=== PATIENT | female | born 1990 | race Caucasian/White ===

== ENCOUNTER 2018-01-13 19:27 | Emergency (ER) | payer OTHER ==
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
[2018-01-13 21:24] VITALS: BP 115/62
== END 2018-01-13 21:24 | disposition home or self-care (01) ==
LOC: ER 19:27
DX: S46.811A Strain of other muscles, fascia and tendons at shoulder and upper arm level, right arm, initial encounter (principal); M54.2 Cervicalgia; R11.0 Nausea; M25.511 Pain in right shoulder; V87.7XXA Person injured in collision between other specified motor vehicles (traffic), initial encounter
CPT/HCPCS: 99283

== ENCOUNTER 2018-12-10 21:20 | Emergency (ER) | payer BC, OTHER ==
[2018-12-10 21:40] VITALS: BP 115/75
[2018-12-10 22:40] LABS: APPEARANCE,URINE CLOUDY; BILIRUBIN,URINE NEGATIVE (NEGATIVE); CALCIUM OXALATE CRYSTALS,URINE MODERATE /HPF; COLOR,URINE YELLOW; GLUCOSE, URINE NEGATIVE (NEGATIVE); KETONES,URINE NEGATIVE (NEGATIVE); LEUKOCYTE ESTERASE,URINE SMALL (NEGATIVE); NITRITE,URINE NEGATIVE (NEGATIVE); PROTEIN,URINE 100 mg/dL (NEGATIVE); URINE SPECIFIC GRAVITY 1.032; UROBILINOGEN,URINE NEGATIVE mg/dL (<2.0)
[2018-12-10] MEDS ORDERED: ONDANSETRON 4 MG TAB.RAPDIS PO ONE (23:38)
[2018-12-10] MEDS ORDERED: KETOROLAC TROMETHAMINE 60 MG/2 ML SDV IM ONE (23:38)
--- NOTE | 2018-12-10 23:38 | ER Document Report ---
ED Medical Screen (RME) - General Chief Complaint: Flank Pain Stated Complaint: BACK PAIN Time Seen by Provider: 12/10/18 23:28 Mode of Arrival: Ambulatory Information source: Patient Notes: Patient is a 28-year-old female comes emergency room complaining of left flank pain with radiation around to her lower abdominal area. Patient states it woke her up out of sleep around 6 PM tonight she took some ibuprofen and then at 8 PM the pain got more pronounced that she took some Goody's powders and then she could not take it any longer came here. She states that this is the pain that seems to make her want to walk and move because she cannot find a position of comfort. She did make sure nauseated but she has not vomited. Stated it started in the left flank and has rolled around to her front side and primarily around her suprapubic area. She denies any other medical history with exception of taking some Prozac for depression. Her last menstrual period is now and the arm surgery she has had in her belly have been 2 C-sections. Patient denies any history of kidney stones in the past. TRAVEL OUTSIDE OF THE [place] 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 Allergies/Adverse Reactions: No Known Allergies Allergy (Unverified 01/13/18 19:34) Past Medical History - General Information source: Patient - Social History Cigarette use (# per day): No Chew tobacco use (# tins/day): No Frequency of alcohol use: None Drug Abuse: None Family history: Reviewed & Not Pertinent Renal/ Medical History: Denies: Hx Peritoneal Dialysis Review of Systems - Review of Systems Constitutional: No symptoms reported EENT: No symptoms reported Cardiovascular: No symptoms reported Respiratory: No symptoms reported Gastrointestinal: See HPI, Abdominal pain, Nausea Genitourinary: See HPI, Dysuria, Urgency Female Genitourinary: No symptoms reported Musculoskeletal: Back pain Skin: No symptoms reported Hematologic/Lymphatic: No symptoms reported Neurological/Psychological: No symptoms reported -: Yes All other systems reviewed and negative Physical Exam - Vital signs Vitals: Temp Pulse Resp BP Pulse Ox 98.1 F 80 16 115/75 98 12/10/18 21:40 12/10/18 21:40 12/10/18 21:40 12/10/18 21:40 12/10/18 21:40 Interpretation: Normal - Notes Notes: PHYSICAL EXAMINATION: GENERAL: Patient is well-nourished well-developed 28-year-old female who is in moderate amount of pain and discomfort on physical exam tonight. However she is not in any distress at this time.. HEAD: Atraumatic, normocephalic. LUNGS: Breath sounds clear to auscultation bilaterally and equal. No wheezes rales or rhonchi. HEART: Regular rate and rhythm without murmurs ABDOMEN: Examination patient's abdomen shows she has bowel sounds in all 4 quads. She is tender in the left upper and left lower quadrant areas but primarily more tender in the suprapubic area. She also displays very sensitive left-sided flank pain to percussion. Female : deferred Musculoskeletal: Patient displays left-sided flank pain to percussion. NEUROLOGICAL: Normal speech, normal gait. Normal sensory, motor exams PSYCH: Normal mood, normal affect. SKIN: Warm, Dry, normal turgor, no rashes or lesions noted. Course - Re-evaluation Re-evalutation: 12/10/18 23:37 Patient is started. This day as well. She does display flank pain we will go ahead and do a CT of her abdomen and pelvis without contrast after we receive her other labs back. - Vital Signs Vital signs: Temp Pulse Resp BP Pulse Ox 98.1 F 80 16 115/75 98 12/10/18 21:40 12/10/18 21:40 12/10/18 21:40 12/10/18 21:40 12/10/18 21:40 - Laboratory Laboratory results interpreted by me: 12/10/18 22:11 Urine Protein 100 H Urine Blood LARGE H Ur Leukocyte Esterase SMALL H
[2018-12-11 00:28] LABS: ABSOLUTE BASOPHILS # (AUTO) 0.1 10^3/uL (0.0-0.2); ABSOLUTE EOSINOPHILS # (AUTO) 0.1 10^3/uL (0.0-0.6); ABSOLUTE LYMPHOCYTES (AUTO) 1.5 10^3/uL (0.5-4.7); ABSOLUTE MONOCYTES (AUTO) 0.9 10^3/uL (0.1-1.4); ABSOLUTE NEUT (AUTO) 11.3 10^3/uL (1.7-8.2); BASOPHILS % (AUTO) 0.7 % (0-2); EOSINOPHILS % (AUTO) 0.7 % (0-6); HEMATOCRIT 36.4 % (36.0-47.0); HEMOGLOBIN 12.3 g/dL (12.0-15.5); MEAN CORPUSCULAR HEMOGLOBIN 29.9 pg (27.0-33.4); MEAN CORPUSCULAR HGB CONC 33.7 g/dL (32.0-36.0); MEAN CORPUSCULAR VOLUME 89 fl (80-97); MONOCYTES % (AUTO) 6.8 % (3-13); PLATELET COUNT 334 10^3/uL (150-450); RED BLOOD COUNT 4.11 10^6/uL (3.72-5.28); RED CELL DISTRIBUTION WIDTH 12.8 % (11.5-14.0); SEGMENTED NEUTROPHILS % (AUTO) 80.8 % (42-78); TOTAL CELLS COUNTED % (AUTO) 100 %
[2018-12-11 00:49] LABS: ALANINE AMINOTRANSFERASE 25 U/L (9-52); ALBUMIN 4.1 g/dL (3.5-5.0); ALKALINE PHOSPHATASE 74 U/L (38-126); ANION GAP 12 (5-19); ASPARTATE AMINO TRANSFERASE 18 U/L (14-36); BILIRUBIN,DIRECT 0.2 mg/dL (0.0-0.4); BILIRUBIN,TOTAL 0.4 mg/dL (0.2-1.3); BLOOD UREA NITROGEN 11 mg/dL (7-20); CALCIUM 9.8 mg/dL (8.4-10.2); CARBON DIOXIDE 23 mmol/L (22-30); CHLORIDE 107 mmol/L (98-107); GLUCOSE 167 mg/dL (75-110); POTASSIUM 4.2 mmol/L (3.6-5.0)
--- NOTE | 2018-12-11 00:50 | RADIOLOGY REPORT (SQ) ---
EXAM DESCRIPTION: CT ABDOMEN PELVIS WITHOUT IV CONTRAST COMPLETED DATE/TME: 12/10/2018 23:39 CLINICAL HISTORY: 28 years, Female, Left flank pain rule out stone COMPARISON: None. TECHNIQUE: CT of the abdomen and pelvis was performed without intravenous or oral contrast. Multiplanar reformatted images were provided. This exam was performed according to our departmental dose optimization program which includes use of automated exposure control, adjustment of the mA and/or kV according to patient size and/or use of iterative reconstruction technique. Images stored on PACS. All CT scanners at this facility use dose modulation, iterative reconstruction, and/or weight based dosing when appropriate to reduce radiation dose to as low as reasonably achievable (ALARA). [facility]: Dose Right [facility]: CareDose [facility]: Dose Right [facility]: Teradose 4D [facility]: Roomlr LIMITATIONS: None. FINDINGS: Evaluation of solid organ pathology is limited secondary to lack of intravenous contrast. Within these limitations, the following observations are made. Chest: Evaluation through the lung bases reveals no focal opacity, pleural effusion or pneumothorax. Heart size is within normal limits. No pericardial effusion. Abdomen and pelvis: The LEFT kidney reveals mild to moderate hydronephrosis and hydroureter to the level of the bladder where there is a dependent left-sided calcification compatible with calculus measuring 2 mm. At least one remaining focus of calcification remains within the LEFT renal pelvis measuring 2 mm. Multiple punctate foci of calcification within the RIGHT renal pelvis. The liver, gallbladder, pancreas, spleen, RIGHT kidney and bilateral adrenal glands are within normal limits. The vessels are normal in caliber. No abdominopelvic lymph nodes are noted to be pathologically enlarged by CT measurement criteria. The bowel is within normal limits without abnormal bowel wall thickness or bowel dilation. No free air. No free abdominopelvic fluid collections. The appendix is within normal limits. Intrauterine device present within the central uterine fundus. The osseous structures are within normal limits. IMPRESSION: 1. Mild to moderate hydronephrosis of the LEFT kidney secondary to 2 mm calculus within the dependent LEFT bladder. 2. Perinephric stranding for which superimposed infectious process cannot be excluded. 3. Multiple punctate foci of calcification within the RIGHT renal pelvis compatible with nonobstructing calculi. TECHNICAL DOCUMENTATION: Quality ID # [id number]: Final reports with documentation of one or more dose reduction techniques (e.g., Automated exposure control, adjustment of the mA and/or kV according to patient size, use of iterative reconstruction technique) copyright 2010 [email or web address]- All Rights Reserved
[2018-12-11] MEDS ORDERED: CEPHALEXIN 500 MG CAPSULE PO ONE (01:52)
[2018-12-11] MEDS ORDERED: ACETAMINOPHEN 325 MG TABLET PO ONE (01:53)
--- NOTE | 2018-12-11 01:58 | ER Document Report ---
ED General - General Chief Complaint: Flank Pain Stated Complaint: BACK PAIN Time Seen by Provider: 12/10/18 23:28 Mode of Arrival: Ambulatory Notes: Patient is a 28-year-old female comes emergency room complaining of left flank pain with radiation around to her lower abdominal area. Patient states it woke her up out of sleep around 6 PM tonight she took some ibuprofen and then at 8 PM the pain got more pronounced that she took some Goody's powders and then she could not take it any longer came here. She states that this is the pain that seems to make her want to walk and move because she cannot find a position of comfort. She did make sure nauseated but she has not vomited. Stated it started in the left flank and has rolled around to her front side and primarily around her suprapubic area. She denies any other medical history with exception of taking some Prozac for depression. Her last menstrual period is now and the arm surgery she has had in her belly have been 2 C-sections. Patient denies any history of kidney stones in the past. T - HPI Onset: This evening Onset/Duration: Sudden, Persistent, Worse Quality of pain: Achy, Sharp, Stabbing, Throbbing Severity: Severe Associated Symptoms: Abdominal pain, Dysuria, Nausea Exacerbated by: Movement Relieved by: Denies Similar symptoms previously: No Recently seen / treated by doctor: No TRAVEL OUTSIDE OF THE [place] IN LAST 30 DAYS: No - Related Data Allergies/Adverse Reactions: No Known Allergies Allergy (Unverified 01/13/18 19:34) Past Medical History - General Information source: Patient - Social History Smoking Status: Never Smoker Cigarette use (# per day): No Chew tobacco use (# tins/day): No Frequency of alcohol use: None Drug Abuse: None Lives with: Spouse/Significant other Family History: Reviewed & Not Pertinent Patient has suicidal ideation: No Patient has homicidal ideation: No Renal/ Medical History: Denies: Hx Peritoneal Dialysis Past Surgical History: Reports: Hx Section - 2, Hx Tonsillectomy Review of Systems - Review of Systems Notes: Constitutional: Negative for fever. HENT: Negative for sore throat. Eyes: Negative for visual changes. Cardiovascular: Negative for chest pain. Respiratory: Negative for shortness of breath. Gastrointestinal: Positive for left flank and left lower abdominal pain. Positive for nausea and vomiting Genitourinary: Positive for dysuria. Musculoskeletal: Negative for back pain. Skin: Negative for rash. Neurological: Negative for headaches, weakness or numbness. 10 point ROS negative except as marked above and in HPI. Physical Exam - Vital signs Vitals: Temp Pulse Resp BP Pulse Ox 98.1 F 80 16 115/75 98 12/10/18 21:40 12/10/18 21:40 12/10/18 21:40 12/10/18 21:40 12/10/18 21:40 Interpretation: Normal Notes: PHYSICAL EXAMINATION: GENERAL: Well-appearing, well-nourished and in no acute distress. HEAD: Atraumatic, normocephalic. EYES: Pupils equal round and reactive to light, extraocular movements intact, sclera anicteric, conjunctiva are normal. ENT: nares patent, oropharynx clear without exudates. Moist mucous membranes. NECK: Normal range of motion, supple without lymphadenopathy LUNGS: Breath sounds clear to auscultation bilaterally and equal. No wheezes r ales or rhonchi. HEART: Regular rate and rhythm without murmurs ABDOMEN: Soft, mild left CVA tenderness, no other localized area of abdominal tenderness, normoactive bowel sounds. No guarding, no rebound. No masses appreciated. EXTREMITIES: Normal range of motion, no pitting or edema. No cyanosis. NEUROLOGICAL: No focal neurological deficits. Moves all extremities spontaneously and on command. PSYCH: Normal mood, normal affect. SKIN: Warm, Dry, normal turgor, no rashes or lesions noted. Course - Re-evaluation Re-evalutation: 12/11/18 01:54 Presents with findings consistent with acute nephrolithiasis. Urinalysis does show hematuria as well as some pyuria. CT scan of the abdomen pelvis obtained in triage does demonstrate a 2 mm stone that is passed into the bladder as well as perinephric straining on the left kidney. Laboratory otherwise unremarkable. Pain was able to be controlled here in the emergency department. Patient is tolerating oral intake. Clinical history is not consistent with an acute abdomi nal aneurysm or dissection, [place], or pulmonary embolus. Patient has been started on cephalexin given urinalysis findings that do contain pyuria as well as perinephric stranding on CT scan. Vitals have remained within normal limits. At this time will discharge with return precautions and follow-up r ecommendations. Verbal discharge instructions given a the bedside and opportunity for questions given. Medication warnings reviewed. Patient is in agreement with this plan and has verbalized understanding of return precautions and the need for primary care follow-up in the next 24-72 hours. - Vital Signs Vital signs: Temp Pulse Resp BP Pulse Ox 98.1 F 80 16 115/75 98 12/10/18 21:40 12/10/18 21:40 12/10/18 21:40 12/10/18 21:40 12/10/18 21:40 - Laboratory Result Diagrams: 12/10/18 23:55 12/10/18 23:55 Laboratory results interpreted by me: 12/10/18 12/10/18 12/10/18 22:11 23:55 23:55 WBC 14.0 H Seg Neutrophils % 80.8 H Lymphocytes % 11.0 L Absolute Neutrophils 11.3 H Glucose 167 H Urine Protein 100 H Urine Blood LARGE H Ur Leukocyte Esterase SMALL H - Diagnostic Test Radiology reviewed: Reports reviewed Discharge - Discharge Clinical Impression: Left flank pain, Nephrolithiasis Nausea and vomiting Qualifiers: Vomiting type: unspecified Vomiting Intractability: non-intractable Qualified Code(s): R11.2 - Nausea with vomiting, unspecified Condition: Good Disposition: HOME, SELF-CARE Additional Instructions: Your CT scan shows a kidney stone that passed into your bladder. Your urine suggest that you may also have an associated infection. Your symptoms should improve over the course of the next one week. Please also return if you develop fever, persistent vomiting, or any other symptoms that are concerning to you. For your pain: Take ibuprofen 600 mg and acetaminophen 1000 mg every 6 hours together as needed for pain. Take antibiotics as prescribed. Follow-up with your primary care physician within the next 24 to 48 hours. Prescriptions: Cephalexin Monohydrate [Keflex 500 mg Capsule] 500 mg PO Q6H 7 Days capsule
== END 2018-12-11 02:16 | disposition home or self-care (01) ==
LOC: ER 21:20
DX: N21.0 Calculus in bladder (principal); N39.0 Urinary tract infection, site not specified; R31.9 Hematuria, unspecified; R11.2 Nausea with vomiting, unspecified; F32.9 Major depressive disorder, single episode, unspecified; Z79.899 Other long term (current) drug therapy
CPT/HCPCS: 99284; 96372; 36415; 87086; 84703; 85025; 87088; 80053; 81001; 74176; J1885; S0119